=== PATIENT | male | born 1935 | race Caucasian/White ===

== ENCOUNTER → 2016-07-21 | Outpatient (CLI) | payer OTHER ==
[~2016-07-21] MED LIST: ACET-709 PO; ASPI-496 PO; BENA10TA2 PO; BUDE10.2 INH; GABA300C10 PO; HYDR12.58 PO; INSU100V8 SQ; INSU100V9 SQ; LOVA40TA2 PO; PHEN-418 PO; SENN1TAB67 PO
== END | disposition home or self-care (01) ==
LOC: RAD 10:50
PROVIDERS: ATTEND Neurological Surgery
DX: S32.010A Wedge compression fracture of first lumbar vertebra, initial encounter for closed fracture (principal); M47.897 Other spondylosis, lumbosacral region; M43.8X6 Other specified deforming dorsopathies, lumbar region; X58.XXXA Exposure to other specified factors, initial encounter
CPT/HCPCS: 72100

== ENCOUNTER 2018-09-14 07:09 | Emergency (ER) | payer MEDICARE, OTHER ==
[~2018-09-14] VITALS: Ht 162.6 cm; Wt 64.1 kg
[~2018-09-14 07:09] MED LIST changes: -BENA10TA2 PO; +BENA10TA4 PO; -HYDR12.58 PO; +HYDROCHLOROTH12.5 MG PO
--- NOTE | 2018-09-14 07:10 | NUR ---
PT AMBULATORY TO ROOM 18 WITH FAMILY. PT STATES "MY RIGHT FOOT IS BLACK AND BLUE AND SWOLLEN. IT'S BEEN ABOUT A WEEK."PT DENIES TRAUMA TO RIGHT LOWER EXTREMITY. PT DOES STATE THAT FOOT IS "NUMB" BUT NO PAIN UPON PALPATION. PT ON ROOM AIR, VSS, AAO X 4. DRESSED IN GOWN AND RESTING COMFORTABLY ON GURNEY, CALL LIGHT AND BELONGINGS WITHIN REACH, FAMILY AT BEDSIDE.
--- NOTE | 2018-09-14 07:38 | NUR ---
AT BEDSIDE FOR EXAM.
--- NOTE | 2018-09-14 08:04 | NUR ---
US AT BEDSIDE.
[2018-09-14] MEDS ORDERED: INSU100I13 SQ-INSULIN (08:09)
[2018-09-14] MEDS ORDERED: INSU100I37 SQ-INSULIN (08:09)
[2018-09-14] MEDS ORDERED: ATOR40TA78 PO (08:09)
[2018-09-14] MEDS ORDERED: HYDR25TA6 PO (08:09)
[2018-09-14] MEDS ORDERED: LORazepam 1MG TABLET ONE (08:32)
[2018-09-14 08:35] VITALS: BP 128/60
--- NOTE | 2018-09-14 08:36 | NUR ---
PT RESTING COMFORTABLY IN RMCCLURE. VSS, PT AAO X 4, SIDERAIL X [address], CALL LIGHT AND BELONGINGS WITHIN REACH. FAMILY AT BEDSIDE, BLANKET PROVIDED FOR COMFORT. ALL NEEDS MET.
--- NOTE | 2018-09-14 09:03 | NUR ---
Patient/Caregiver given discharge instructions and they have confirmed that they understand the instructions. Patient ambulatory with steady gait.
== END 2018-09-14 09:05 | disposition home or self-care (01) ==
LOC: ED 08:59
DX: S90.01XA Contusion of right ankle, initial encounter (principal); M79.661 Pain in right lower leg; Z87.891 Personal history of nicotine dependence; X50.1XXA Overexertion from prolonged static or awkward postures, initial encounter; Y93.89 Activity, other specified; Y92.009 Unspecified place in unspecified non-institutional (private) residence as the place of occurrence of the external cause; Y99.8 Other external cause status
CPT/HCPCS: 99284

== ENCOUNTER 2020-12-18 07:57 | Outpatient (CLI) | payer MEDICARE ==
[~2020-12-18 07:57] MED LIST changes: +ATOR40TA78 PO; -BENA10TA4 PO; +BENA10TA59 PO; +HYDR25TA6 PO; +INSU100I13 SQ-INSULIN; +INSU100I37 SQ-INSULIN
== END 2020-12-18 23:59 | disposition home or self-care (01) ==
LOC: CVU 07:57
PROVIDERS: ATTEND Family Medicine
DX: I08.3 Combined rheumatic disorders of mitral, aortic and tricuspid valves (principal); R06.02 Shortness of breath
CPT/HCPCS: 93306